=== PATIENT | male | born 1955 | race Caucasian/White ===

== ENCOUNTER → 2023-12-06 19:44 | Outpatient (REF) | payer OTHER, SELFPAY | LOC: MRI 19:44 | PROVIDERS: ATTENDING PHYSICIAN Physician Assistant; FAMILY PHYSICIAN Family Medicine | DX: D35.2 Benign neoplasm of pituitary gland (principal) | CPT/HCPCS: 70553; A9575 ==

== ENCOUNTER 2024-01-30 13:33 | Emergency (ER) | payer OTHER, SELFPAY ==
[2024-01-30] VITALS (8 sets, daily range): BP systolic 114–155; BP diastolic 57–79; PULSE 64–73
--- NOTE | 2024-01-30 14:02 | ED.GENMED ---
History of Present Illness
<Joan Arita PA-C - Last Filed: 01/30/24 18:32>
General
Chief Complaint: Dizziness
Source: patient
Exam Limitations: none
Time Seen by Provider: 01/30/24 13:57
Nursing documentation reviewed up to this point in time: agreed with
Travel History
Have you had any contact with someone who has COVID-19?: No
Do you have any symptoms of coronavirus? Fever > 100 degrees, chills, cough, shortness of breath, sore throat, loss of taste or smell, muscle aches, or headache?: No
History of Present Illness
History of Present Illness:
This is a 68-year-old male with a past medical history of Parkinson's, hypertension, pituitary tumor presenting to the emergency department today with concerns of dizziness. Patient states he was driving to work this morning when he started to feel
slight headache, on and in general just felt a bit off. Patient states that he got to his destination when he got out of the car, he fell to his right side into his car. Patient denies any musculoskeletal pain. Patient denies hitting his head.
Patient states that when he tried walking again felt very off balance. He got back in his car and drove home and when he got out of the car he he started falling to his right again. Patient states that currently the headache is primarily subsided.
Patient describes his dizziness as a general lightheadedness and feeling unsteady when he walks. As patient has been sitting here in emergency department, his headache has subsided and he feels that the dizziness has improved a bit but states he
still feels off. Patient has a left-sided tremor at baseline from the Parkinson's but currently denies any weakness or new tremors. Patient denies any eye pain, any visual changes. Patient denies any remaining visual deficits from tumor removal.
Past History
<Joan Arita PA-C - Last Filed: 01/30/24 18:32>
Past History
ED Past Medical History: None
ED Past Surgical History: None
Social History
Tobacco: Non-smoker
Alcohol: Occasional
Personal:
Living: with family
Employment: Employed
Review of Systems
<Joan Arita PA-C - Last Filed: 01/30/24 18:32>
Review of Systems
All Other Systems: ROS reviewed and negative except as documented in HPI and ROS
Phy Exam
<Joan Arita PA-C - Last Filed: 01/30/24 18:32>
Physical Exam
Physical Exam:
General: Patient is well appearing and in no acute distress; non-toxic
Skin: Warm and dry, no rashes or lesions
Head: Normocephalic, atraumatic
Eyes: Sclera non-icteric. EOMs intact.
Ears: Bilateral cerumen impaction
Cardiac: Regular rate
Peripheral Vascular: No lower extremity swelling or edema
Pulm: Normal respiratory effort
Abdomen: No abdominal tenderness to palpation.
Musculoskeletal: 5/5 strength in b/l upper and lower extremities.
Neuro: GCS 15. CN II-XII intact, no focal neurologic deficits. Chronic left sided resting tremor noted. Finger to nose, heel to palumbo testing intact. Normal gait. Negative Romberg, negative loss of check, negative pronator drift.
Psychiatric: Appropriate mood and affect.
Course
<Joan Arita PA-C - Last Filed: 01/30/24 18:32>
Orders/Labs/Results
Orders:
Orders
01/30/24 13:45
Electrocardiogram (*1) Urgent
Reason for Study: Chest Pain
01/30/24 14:28
Complete Blood Count/With Diff Urgent
Comprehensive Metabolic Panel Urgent
01/30/24 14:53
Orthostatic VS- Treatment ONCE
01/30/24 15:20
0.9% Sodium Chloride 1000 ml [Nss] 1,000 ml IV BOLUS
01/30/24 15:21
CT Head W/o Iv Contrast Urgent
Comment:
Reason For Exam: headache, dizziness
Abnormal Lab Results
01/30/24
14:28
RBC 4.50 L 10^6/uL
(4.70-6.10)
BUN 28 H mg/dl
(9-20)
01/30/24 14:28
01/30/24 14:28
Vital Signs
Initial and Last Documented VS:
Initial Vital Signs
Temp Pulse Resp BP Pulse Ox
97.6 F 64 20 155/77 100
01/30/24 13:41 01/30/24 13:41 01/30/24 13:41 01/30/24 13:41 01/30/24 13:41
Last Documented Vital Signs
Temp Pulse Resp BP Pulse Ox
97.6 F 64 20 155/77 100
01/30/24 13:41 01/30/24 13:41 01/30/24 13:41 01/30/24 13:41 01/30/24 13:41
<Javier Hill, DO - Last Filed: 01/30/24 15:52>
Orders/Labs/Results
Orders:
Orders
01/30/24 13:45
Electrocardiogram (*1) Urgent
Reason for Study: Chest Pain
01/30/24 14:28
Complete Blood Count/With Diff Urgent
Comprehensive Metabolic Panel Urgent
01/30/24 14:53
Orthostatic VS- Treatment ONCE
01/30/24 15:20
0.9% Sodium Chloride 1000 ml [Nss] 1,000 ml IV BOLUS
01/30/24 15:21
CT Head W/o Iv Contrast Urgent
Comment:
Reason For Exam: headache, dizziness
Abnormal Lab Results
01/30/24
14:28
RBC 4.50 L 10^6/uL
(4.70-6.10)
BUN 28 H mg/dl
(9-20)
01/30/24 14:28
01/30/24 14:28
Vital Signs
Initial and Last Documented VS:
Initial Vital Signs
Temp Pulse Resp BP Pulse Ox
97.6 F 64 20 155/77 100
01/30/24 13:41 01/30/24 13:41 01/30/24 13:41 01/30/24 13:41 01/30/24 13:41
Last Documented Vital Signs
Temp Pulse Resp BP Pulse Ox
97.6 F 64 20 155/77 100
01/30/24 13:41 01/30/24 13:41 01/30/24 13:41 01/30/24 13:41 01/30/24 13:41
<Joan Arita PA-C - Last Filed: 01/30/24 18:32>
MDM/Problems Addressed
Differential Diagnosis Includes:
Autonomic instability from Parkinson's, cerumen impaction, BPPV, migraine, posterior CVA
MDM/Problems Addressed:
Dizziness:
This is a 68-year-old male with a past medical history of Parkinson's, hypertension, pituitary tumor presenting to the emergency department today with concerns of dizziness. Patient states he was driving to work this morning when he started to feel
slight headache, on and in general just felt a bit off. Patient states that he got to his destination when he got out of the car, he fell to his right side into his car. On exam, patient is well-appearing, he does have a chronic left-sided tremor
associated with his Parkinson's but has no focal deficits, normal gait, negative Romberg, normal finger-nose motion testing. Negative orthostatics. Negative CT of the head. Patient's symptoms significantly improved with IV fluids. Patient gait is
now normal. Patient stable to follow-up with his neurologist.
Chronic conditions affecting care:
Parkinson's, history of pituitary tumor, hypertension
Acute Exacerbation and/or Progression of Chronic Illness:
Parkinson's, history of pituitary tumor, hypertension
<Joan Arita PA-C - Last Filed: 01/30/24 18:32>
*Pulse Oximetry
Patient hypoxic: no
*Critical Care Note
Total Time (30-74mins, 75-104mins- exclusive of procedures): Not Applicable
Data Reviewed
Review of Other/Old Records Reveals: Records (The ER physician documentation from 04/29/2019, reviewed ER physician documentation 04/26/2011)
Source: patient and records
Further Testing Considered But Not Given:
Consider CTA however patient has no focal neurologic deficits, normal gait, normal finger-nose and heel palubmo testing, no visual changes
<Joan Arita PA-C - Last Filed: 01/30/24 18:32>
Patient Management
Escalation/DeEscalation of care consider admission/obs:
admit not indicated
ED Attending Note
<Joan Arita PA-C - Last Filed: 01/30/24 18:32>
-
Portions of this chart may have been created with voice recognition software.� Occasional wrong word or��sound alike� substitutions may have occurred due to the inherent limitations of voice recognition software.
<Javier Hill DO - Last Filed: 01/30/24 15:52>
ED Attending Note
Patient seen and examined by attending physician: Yes
I performed the substantive portion of visit, reviewed & personally made and approve the management plan that is documented in note by myself or EDGARDO.: Yes
ED Attending Note:
Seen with PA examined independently 69-year-old male status post resection of pituitary tumor 4 years ago at [place], presents with dizziness room spinning worse with head movement started today after driving his grandson to camp, no slurred speech
no arm or leg weakness did fall to the right had a mild headache, not feeling better, similar actually more severe episode year or 2 ago told he may have vertigo referred to vestibular therapy which physical therapist that he really did not have
vertigo but should increase his p.o. fluids here BUN/creatinine noted will hydrate check orthostatics
Discharge Plan
Departure
Patient Disposition: Home (Routine Discharge)
Date of Disposition: 01/30/24
Time of Disposition: 17:33
Patient with high blood pressure during this ER visit?: Yes
Condition: Good
Discharge Problem:
Dizziness
Instructions: Dizziness, BLOOD PRESSURE
Prescriptions:
No Action
No Meds [No Current Medications]
meclizine 25 MG tablet
25 mg PO Q8HPRN PRN (Reason: prn for vertigo) Qty: 20 0RF
Referrals:
Troy Gutierrez MD [Family Provider] -
Activity Restrictions/Additional Instructions:
Please return to the emergency department should you experience any acute recurrence of your symptoms, syncopal episodes, chest pain, shortness of breath, sudden onset severe headache, weakness on one side of the body versus other, confusion, visual
loss, or any other concerns.
Please call your neurologist to schedule follow-up appointment.
Interventions
Interventions:
*Risk Screen - Suicide Last Done: 01/30/24 13:41
*General Assessment Last Done: 01/30/24 13:41
*Neglect/Abuse Screening Last Done: 01/30/24 13:41
Discharge Date and Time
Print Language: FRISIAN
[2024-01-30 14:41] LABS: % Basophils 0.4 % (0-2); % Eosinophils 3.7 % (0-6); % Immature Granulocytes 0.3 % (0-0.5); % Lymphocytes 23.7 % (20.5-51.1); % Monocytes 8.7 % (1.7-9.3); % Neutrophils 63.2 % (42.2-75.2); Absolute Eosinophils 0.3 10^3/uL (0-0.7); Absolute Lymphocytes 1.6 10^3/uL (1.2-3.4); Absolute Monocytes 0.6 10^3/uL (0.1-0.6); Absolute Neutrophils 4.3 10^3/uL (1.4-6.5); Hematocrit 40.3 % (39.0-52.0); Hemoglobin 13.9 g/dL (13.0-18.0); Mean Corp Hgb Conc. 34.5 g/dL (33.0-37.0); Mean Corpuscular Hgb 30.9 pg (27.0-31.0); Mean Corpuscular Volume 89.6 fL (80.0-94.0); Mean Platelet Volume 10.2 fL (7.4-10.4); Nucleated Red Blood Cells % 0 % (-); Platelet Count 178 10^3/uL (130-400); Red Cell Dist. Width 12.8 % (11.5-14.5); White Blood Cell Count 6.8 10^3/uL (4.8-10.8)
[2024-01-30 14:55] LABS: ALT (SGPT) 30 U/L (0-50); AST (SGOT) 25 U/L (17-59); Albumin 4.3 g/dl (3.5-5.0); Alkaline Phosphatase 76 U/L (38-126); Blood Urea Nitrogen 28 mg/dl (9-20); Calcium 9.6 mg/dl (8.4-10.2); Carbon Dioxide 26 mmol/L (22-30); Chloride 106 mmol/L (98-107); Glucose 85 mg/dl (70-99); Potassium 4.6 mmol/L (3.5-5.1); Sodium 140 mmol/L (135-145); Total Bilirubin 0.7 mg/dl (0.2-1.3); Total Protein 6.6 g/dl (6.3-8.2); eGFR > 60.00
[2024-01-30] MEDS: NSS 1000 IV (16:34)
== END 2024-01-30 19:04 | disposition home or self-care (01) ==
LOC: EMR 13:33
PROVIDERS: Emergency Medicine; EMERGENCY PHYSICIAN Emergency Medicine; FAMILY PHYSICIAN Family Medicine
DX: R42 Dizziness and giddiness (principal); I10 Essential (primary) hypertension; G20.A1 Parkinson's disease without dyskinesia, without mention of fluctuations
CPT/HCPCS: 99285; 96360; 70450; 80053; 85025; 93005